=== PATIENT | male | born 1940 | race Caucasian/White ===

== ENCOUNTER 2019-10-14 18:22 | Emergency (ER) | payer OTHER, MEDICAID ==
[~2019-10-14] VITALS: Ht 152.4 cm; Wt 61.2 kg
[2019-10-14 18:35] VITALS: BP 132/65
--- NOTE | 2019-10-14 18:44 | NUR ---
PT TO ER BED 11
--- NOTE | 2019-10-14 18:44 | NUR ---
C/O CHRONIC R THIGH PAIN 01/20. PT STATES HE HAS HAD THE PAIN FOR "A LONG TIME" AND IT RADIATES UP HIS R LEG WHEN HE WALKS. DENIES INJURY, NO OBVIOUS DEFORMITY NOTED. AMBULATORY WITH STEADY GAIT. MN PROVIDED WITH GOWN TO CHANGE INTO, BED IN LOW POSITION. SIDE RAIL UP X1.
--- NOTE | 2019-10-14 19:10 | NUR ---
Dr. Sepulveda examining patient.
--- NOTE | 2019-10-14 19:10 | NUR ---
gave report to cristofer nguyen.
[2019-10-14] MEDS ORDERED: HYDROcodone/APAP 7.5/325 MG 1 TAB PO ONE (19:20)
[2019-10-14] MEDS ORDERED: ONDANSETRON 4 MG ODT PO ONE (19:20)
--- NOTE | 2019-10-14 19:36 | NUR ---
X-Ray at bedside.
--- NOTE | 2019-10-14 19:42 | NUR ---
XRAY AT BEDSIDE
--- NOTE | 2019-10-14 20:47 | NUR ---
PA JORDEN WITH PT
[2019-10-14 20:55] VITALS: BP 132/81
== END 2019-10-14 20:54 | disposition home or self-care (01) ==
LOC: MED 18:22
DX: M79.651 Pain in right thigh (principal); F17.210 Nicotine dependence, cigarettes, uncomplicated; J44.9 Chronic obstructive pulmonary disease, unspecified
CPT/HCPCS: 73552; 99283; Q0092; Q0162

== ENCOUNTER 2020-01-08 14:43 | Emergency (ER) | payer OTHER, MEDICAID ==
[2020-01-08 15:19] VITALS: BP 103/67
== END 2020-01-08 14:53 | disposition left against medical advice (07) ==
LOC: MED 14:43
DX: Z53.21 Procedure and treatment not carried out due to patient leaving prior to being seen by health care provider (principal)

== ENCOUNTER 2021-02-17 17:05 | Inpatient (IN) | payer OTHER, MEDICAID, SELFPAY ==
[~2021-02-17] VITALS: Ht 162.6 cm; Wt 46.9 kg
--- NOTE | 2021-02-17 17:10 | NUR ---
PT BROUGHT TO BED 11 VIA [facility]
[2021-02-17 17:11] VITALS: BP 133/85
--- NOTE | 2021-02-17 17:12 | NUR ---
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 HOME HEALTH NURSE FOUND PATIENT DESATING TO 70-80% PLACED ON 2L O2 VIA NC SAT >94% ON 02. PATIENT LUNG SOUNDS CRACKLES THOUGHOUT, +COUGH, -FEVER, CHILLS, N/V/D. SKIN INTACT, A&O X4, PLACED IN GOWN AND ON MONITOR. PMH: CARDIAC STENTS PLACED, HTN, COPD. ALLERGIES: SULFA
--- NOTE | 2021-02-17 17:15 | NUR ---
RAD at bedside
[2021-02-17] MEDS ORDERED: MORPHINE SULFATE 2 MG/ML SYR IVP ONE (17:20)
--- NOTE | 2021-02-17 17:20 | NUR ---
Blood sample and cultures collected, handed to CPT Charity at ER bedside
[2021-02-17] MEDS ORDERED: methylPREDNISolone SS 125 MG/2 ML VIAL IVP ONE (17:35)
[2021-02-17] MEDS ORDERED: ALBUTEROL SULFATE/IPRATROPIU 3 ML SOL IH ONE ×2 (17:35→21:34)
--- NOTE | 2021-02-17 17:50 | NUR ---
EMT at bedside for EKG
[2021-02-17 17:52] LABS: BASOPHILS % (AUTO) 0.3 % (0.0-2.0); HEMATOCRIT 38.9 % (36-52); HEMOGLOBIN 12.5 g/dL (12.0-18.0); LYMPHOCYTES # (AUTO) 0.7 K/uL (2.0-11.5); MEAN CORPUSCULAR HEMOGLOBIN 26 pg (27-31); MEAN CORPUSCULAR HGB CONC 32 g/dL (33-37); MEAN CORPUSCULAR VOLUME 80.1 fL (80-94); MONOCYTES # (AUTO) 1.2 K/uL (0.8-1.0); NEUTROPHILS # (AUTO) 14.7 K/uL (1.8-7.7); NEUTROPHILS % (AUTO) 88.7 % (42.2-75.2); PLATELET COUNT (AUTO) 637 K/uL (140-450); RED BLOOD CELL COUNT(AUTO) 4.86 MIL/uL (4.20-6.10); WHITE BLOOD COUNT (AUTO) 16.6 K/uL (4.8-10.8)
[2021-02-17 18:02] LABS: ALBUMIN 2.7 g/dL (3.4-5.0); ANION GAP 12.6 (8-16); ASPARTATE AMINOTRANSFERASE 25 U/L (15-37); CARBON DIOXIDE 30.5 mmol/L (21-32); CHLORIDE 99 mmol/L (98-107); CREATININE 1.3 mg/dL (0.6-1.3); GLUCOSE 112 mg/dL (74-106); POTASSIUM 5.1 mmol/L (3.5-5.1); SODIUM SERUM 137 mmol/L (136-145); TOTAL BILIRUBIN 0.4 mg/dL (0.0-1.0); UREA NITROGEN, BLOOD 30 mg/dL (7-18)
--- NOTE | 2021-02-17 18:31 | NUR ---
VIKI WALSH [phone]
--- NOTE | 2021-02-17 18:37 | NUR ---
GUSTABO DIAS AND NOVEL SAMPLES COLLECTED AND TAKEN TO LAB
--- NOTE | 2021-02-17 18:47 | NUR ---
DAUGHTER STEPHANIE WALSH AT BEDSIDE.
[2021-02-17] MEDS ORDERED: CEFEPIME 2,000 MG in DEXTROSE 5% 100 ML IV ONE (19:10)
[2021-02-17] MEDS ORDERED: VANCOMYCIN 1,000 MG in DEXTROSE 5% 250 ML IV ONE (19:10)
--- NOTE | 2021-02-17 19:10 | NUR ---
AARON COLLECTED, WALKED TO LAB AND HANDED TO CPT. CHITO
[2021-02-17 19:19] LABS: APPEARANCE,URINE CLEAR (CLEAR); BILIRUBIN,URINE 1+ (NEGATIVE); BLOOD, URINE NEGATIVE (NEGATIVE); COLOR,URINE YELLOW (YELLOW); LEUKOCYTE ESTERASE ,URINE NEGATIVE (NEGATIVE); NITRITE, URINE NEGATIVE (NEGATIVE); PH,URINE 5.5 (5.0-9.0); UGLUCOSE NEGATIVE (NEGATIVE)
[2021-02-17] MEDS ORDERED: FUROSEMIDE 40 MG/4 ML VIAL IVP ONE (19:20)
--- NOTE | 2021-02-17 19:21 | NUR ---
REPORT AND TRANSFER OF CARE GIVEN TO AUBREY DARNELL.
--- NOTE | 2021-02-17 19:21 | NUR ---
REPORT RECIEVED FROM AUBREY BURRIS FOR CONTINUITY OF CARE.
[2021-02-17] MEDS ORDERED: NACL 0.9% 1,000 ML IV ONE (19:25)
[2021-02-17] MEDS ORDERED: CEFEPIME 2,000 MG VIAL IV ONE (19:27)
--- NOTE | 2021-02-17 19:30 | NUR ---
RT ALEKSANDER MADE AWARE OF INH TX.
--- NOTE | 2021-02-17 20:11 | NUR ---
CONFIRMED WITH PT, SON (RICHIE) OK TO COME SEE PT. PROVIDED PROOF OF FULL VACCINATION.
--- NOTE | 2021-02-17 20:20 | NUR ---
PT SON KAYLYNN AT BEDSIDE DOES NOT HAVE LIST READILY AVAILABLE OF PTS HOME MEDICATIONS. STATED HE WILL GO HOME SHORTLY AND BRING MEDICATIONS BACK TO OBTAIN MED REC.
[2021-02-17] MEDS ORDERED: VANCOMYCIN 1,000 MG VIAL ONE (20:23)
--- NOTE | 2021-02-17 21:00 | NUR ---
PT NOTED TO HAVE VOIDED IN BED. RAYMUNDO CARE PERFORMED, NEW DIAPER APPLIED, BEDDING CHANGED, PT REPOSITIONED FOR COMFORT, WARM BLANKET GIVEN.
--- NOTE | 2021-02-17 21:35 | NUR ---
SON BACK AT BEDSIDE. OBTAINED CURRENT MED REC. WILL UPDATE PT CHART.
--- NOTE | 2021-02-17 21:38 | NUR ---
RT AT BEDSIDE.
[2021-02-17] MEDS ORDERED: GABA400C PO (21:42)
[2021-02-17] MEDS ORDERED: TADA20TA42 PO (21:42)
[2021-02-17] MEDS ORDERED: ALBU117P INH (21:42)
[2021-02-17] MEDS ORDERED: SENN-72 PO (21:42)
[2021-02-17] MEDS ORDERED: TAMS0.4C96 PO (21:42)
--- NOTE | 2021-02-17 21:56 | NUR ---
Tx (DUO) GIVEN AND PT TOLERATED WELL PER PT Tx WAS STOPPED SLIGHTLY EARLY PT WAS REPLACED ON 2LNC HE WAS PRIOR TO Tx
[2021-02-17] MEDS ORDERED: DOCUSATE SODIUM 100 MG GELCAP PO PRN (22:30)
[2021-02-17] MEDS ORDERED: POTASSIUM CHLORIDE 10 MEQ TABER PO PRN (22:30)
[2021-02-17] MEDS ORDERED: ONDANSETRON 4 MG/2 ML VIAL IM/IVP PRN (22:30)
[2021-02-17] MEDS ORDERED: HYDROcodone/APAP 7.5/325 MG 1 TAB PO PRN (22:30)
[2021-02-17] MEDS ORDERED: ACETAMINOPHEN 325 MG TAB PO PRN (22:30)
[2021-02-17] MEDS ORDERED: guaiFENesin DM 200/20 MG-10 ML 10 ML UDC PO PRN (22:30)
[2021-02-17] MEDS ORDERED: PIPERACILLIN/TAZOBACTAM 3.375 GM in DEXTROSE 5% 50 ML IV SCH (22:35)
[2021-02-17] MEDS ORDERED: ALBUTEROL SULFATE/IPRATROPIU 3 ML SOL IH PRN (22:35)
[2021-02-17 23:01] LABS: PROTHROMBIN TIME 11.5 secs (10.8-13.4)
[2021-02-17] MEDS ORDERED: PIPERACILLIN/TAZOBACTAM 2.25 GM VIAL IV ONE (23:03)
[2021-02-17 23:10] LABS: CHOL/HDL RATIO 3.9 (1-4.5); FREE T4 (FREE THYROXINE) 1.5 ng/dL (0.76-1.46); MAGNESIUM 2.4 mg/dL (1.8-2.4); PHOSPHORUS 5.3 mg/dL (2.5-4.9); THYROID STIMULATING HORMONE 1.1 uIU/mL (0.34-3.74)
[2021-02-17] MEDS: PIPER/TAZO 2.25GM/D5W PREMIX 50 ML IV SCH ×2 (23:11→23:14)
--- NOTE | 2021-02-17 23:15 | NUR ---
PT RESTING IN BED COMFORTABLY WITH EYES CLOSED. NO NOTED RESPIRATORY DISTRESS, RESPIRATIONS REMAIN EVEN AND UNLABORED. WILL CONTINUE TO MONITOR.
[2021-02-18] MEDS ORDERED: PIPERACILLIN/TAZOBACTAM 2.25 GM VIAL IV ONE ×5 (00:12→23:21)
[2021-02-18] MEDS: PIPER/TAZO 2.25GM/D5W PREMIX 50 ML IV SCH ×5 (00:15→06:18)
--- NOTE | 2021-02-18 01:19 | NUR ---
Patient appears to be resting comfortably in bed, EYES CLOSED. Vital Signs within normal limits. Respirations even and unlabored. REMAINS ON 2L O2 NASAL CANNULA, NO NOTED DISTRESS. WILL CONTINUE TO MONITOR.
--- NOTE | 2021-02-18 01:25 | NUR ---
MRSA SWAB COLLECTED AND TAKEN TO LAB BY AUBREY CHILDS.
--- NOTE | 2021-02-18 03:15 | NUR ---
RT AT BEDSIDE.
--- NOTE | 2021-02-18 03:16 | NUR ---
PT REFUSED ABG AT THIS TIME
--- NOTE | 2021-02-18 04:22 | NUR ---
Patient appears to be resting comfortably in bed, EYES CLOSED. Vital Signs within normal limits. Respirations even and unlabored. REMAINS ON 2L NASAL CANNULA WHILE SLEEPING. NO NOTED SIGNS OF DISTRESS. WILL CONTINUE TO MONITOR.
--- NOTE | 2021-02-18 05:23 | NUR ---
Patient appears to be resting comfortably in bed, EYES CLOSED, AROUSABLE TO VOICE. Vital Signs within normal limits. Respirations even and unlabored. PROVIDED ADDITIONAL BLANKET FOR COMFORT.
--- NOTE | 2021-02-18 05:46 | NUR ---
LAB AT BEDSIDE.
--- NOTE | 2021-02-18 06:13 | NUR ---
SPOKE WITH PTS DAUGHTER, VIKI. PROVIDED UPDATE ON PT STATUS.
[2021-02-18 06:29] LABS: BASOPHILS % (AUTO) 0.1 % (0.0-2.0); HEMATOCRIT 37.2 % (36-52); LYMPHOCYTES # (AUTO) 0.6 K/uL (2.0-11.5); LYMPHOCYTES % (AUTO) 3.6 % (20.5-51.1); MEAN CORPUSCULAR HEMOGLOBIN 26 pg (27-31); MEAN CORPUSCULAR HGB CONC 32 g/dL (33-37); MEAN CORPUSCULAR VOLUME 80.5 fL (80-94); MONOCYTES # (AUTO) 0.5 K/uL (0.8-1.0); MONOCYTES % (AUTO) 3.4 % (1.7-9.3); NEUTROPHILS # (AUTO) 14.6 K/uL (1.8-7.7); NEUTROPHILS % (AUTO) 92.9 % (42.2-75.2); PLATELET COUNT (AUTO) 501 K/uL (140-450); RED BLOOD CELL COUNT(AUTO) 4.62 MIL/uL (4.20-6.10); RED CELL DISTRIBUTION WIDTH 15.3 % (11.6-13.7); WHITE BLOOD COUNT (AUTO) 15.7 K/uL (4.8-10.8)
[2021-02-18] MEDS: ALBUTEROL SULFATE/IPRATROPIU 3 ML SOL IH SCH ×3 (07:00→19:10)
--- NOTE | 2021-02-18 07:02 | NUR ---
RT AT BEDSIDE.
[2021-02-18 07:04] LABS: ANION GAP 12.9 (8-16); CARBON DIOXIDE 29.5 mmol/L (21-32); CHLORIDE 101 mmol/L (98-107); CREATININE 1.3 mg/dL (0.6-1.3); GLUCOSE 133 mg/dL (74-106); POTASSIUM 4.4 mmol/L (3.5-5.1); SODIUM SERUM 139 mmol/L (136-145); UREA NITROGEN, BLOOD 36 mg/dL (7-18)
--- NOTE | 2021-02-18 07:12 | NUR ---
REPORT GIVEN TO AUBREY BURRIS/BETH RN FOR CONTINUITY OF CARE.
--- NOTE | 2021-02-18 07:13 | NUR ---
REPORT AND CONTINUATION OF CARE RECEIVED FROM AUBREY DARNELL.
[2021-02-18] MEDS ORDERED: METOPROLOL 5 MG/5 ML VIAL IVP SCH ×2 (08:00→08:14)
--- NOTE | 2021-02-18 08:30 | NUR ---
Patient resting in position of comfort HOB elevated 30*. clinical research monitor remains in place. Bed locked in lowest position, side rails x 2, call light in reach.
[2021-02-18] MEDS ORDERED: DIGOXIN 0.25 MG/ML AMP IV SCH ×3 (08:42→21:00)
--- NOTE | 2021-02-18 08:50 | NUR ---
DUONED TX NOT GIVEN DUE TO HR 160, SPO2 92%.
--- NOTE | 2021-02-18 08:52 | NUR ---
SPOKE WITH DR CASTILLO REGARDING PATIENT BP OF 95/59, ORDERS TO HOLD LOPRESSOR 5MG AND OKAY TO GIVE DIGOXIN 0.5 X1 NOW FOR HR OF 164 AND LASIX 20MG SCHEDULED.
[2021-02-18] MEDS: SENNA 8.6 MG TAB PO SCH (09:00)
[2021-02-18] MEDS ORDERED: GABAPENTIN 100 MG CAP PO SCH (09:00)
[2021-02-18] MEDS: PANTOPRAZOLE 40 MG TABEC PO SCH (09:00)
[2021-02-18] MEDS ORDERED: TADALAFIL 20 MG PO SCH (09:00)
[2021-02-18] MEDS: FUROSEMIDE 20 MG/2 ML VIAL IVP SCH ×2 (09:22→20:59)
[2021-02-18] MEDS: GABAPENTIN 300 MG CAP PO SCH ×2 (09:27→21:00)
--- NOTE | 2021-02-18 09:46 | NUR ---
MEAL AT BEDSIDE
--- NOTE | 2021-02-18 11:27 | NUR ---
SON AT BEDSIDE, PATIENT SITTING UP IN BED ALERT AND ORIENTED. RR EVEN AND UNLABORED.
--- NOTE | 2021-02-18 12:30 | NUR ---
PHYSICAL THERAPY AT BEDSIDE
[2021-02-18] MEDS: PIPERACILLIN/TAZOBACTAM 2.25 GM in DEXTROSE 5% 50 ML IV SCH ×3 (12:53→23:42)
[2021-02-18] MEDS: TADALAFIL 20 MG PO SCH (12:53)
--- NOTE | 2021-02-18 13:02 | NUR ---
DAUGHTER AT BEDSIDE.
[2021-02-18] MEDS: AMIODARONE 200 MG TAB PO SCH ×2 (13:50→17:00)
--- NOTE | 2021-02-18 14:09 | NUR ---
LAMP SHADE ASSEMBLER AT BEDSIDE.
--- NOTE | 2021-02-18 14:54 | NUR ---
1000mL bolus 0.9% NS initiated to right AC.
[2021-02-18] MEDS ORDERED: NACL 0.9% 1,000 ML IV ONE ×2 (16:10→18:30)
--- NOTE | 2021-02-18 18:04 | NUR ---
DR REESE CONTACTED REGARDING BP 93/53 HR 91, NOTIFIED IF AMIODARONE SAFE TO GIVE. DR REESE ORDER TO HOLD AMIODARONE AND GIVE BOLUS OF NS.
--- NOTE | 2021-02-18 18:30 | NUR ---
PATIENT REPOSITIONED IN BED, ON RIGHT SIDE WITH PILLOW SUPPORT. LINEN CHANGED, PROVIDED WITH WATER. DAUGHTER AT BEDSIDE.
--- NOTE | 2021-02-18 19:22 | NUR ---
REPORT AND TRANSFER OF CARE GIVEN TO AUBREY CHILDS.
--- NOTE | 2021-02-18 19:32 | NUR ---
pt is resting, eyes closed, opens eyes if stimulated. Equal rise and fall of chest wall. vss. pt is in stable condition. all needs met at this time. bed locked in lowest position, side rails x2.
[2021-02-18] MEDS: TAMSULOSIN 0.4 MG CAP PO SCH (21:00)
--- NOTE | 2021-02-18 21:00 | NUR ---
pt is awake, stated he was glad to have a room now. denies pain and discomfort. all needs met at this time.
--- NOTE | 2021-02-18 22:02 | NUR ---
report given to cristofer blair. [id number]
--- NOTE | 2021-02-18 22:18 | NUR ---
PATIENT WAS BROUGHT FROM ER VIA [employer] AAOX4. NO S/S OF DISTRESS. RESPIRATION EVEN UNLABORED. PLACED IN BED COMFORTABLY. ALL SAFETY PRECAUTIONS ARE IN PLACE. ORIENTED TO CALL LIGHT, TV, ROOM, STAFF. CALL LIGHT WITHIN REACH. WITH 2 IV LINE , LAC 24 G AND RAC 22 G. SKIN IS INTACT. BOWEL SOUNDS PRESENT IN ALL 4 QUADRANT. DENIES PAIN. MRSA SCREENING DONE. WILL CONTINUE TO MONITOR. Addendum: 02/19/21 at 0144 by Kathy Andrade RN RN PT WAS BROUGHT TO [facility] FROM ER.
--- NOTE | 2021-02-18 22:20 | NUR ---
Patient will be admitted to care of . Admited to [facility]. Will go to [id number]. Belongings list completed. Report to AUBREY VELÁZQUEZ.
--- NOTE | 2021-02-18 23:42 | NUR ---
ZOSYN GIVEN ORDERED.
[2021-02-19] MEDS: ZOLPIDEM 5 MG TAB PO PRN ×2 (01:25→21:15)
--- NOTE | 2021-02-19 01:25 | NUR ---
PATIENT ASKED FOR SLEEPING PILL, JOHANNA GIVEN PER MD ORDERED. PATIENT IS KEPT CLEAN AND DRY.
[2021-02-19] MEDS: PIPERACILLIN/TAZOBACTAM 2.25 GM in DEXTROSE 5% 50 ML IV SCH ×3 (06:00→18:53)
[2021-02-19 06:07] LABS: T4 (THYROXINE) 9.1 ug/dL (4.5-12.0)
[2021-02-19] MEDS ORDERED: PIPERACILLIN/TAZOBACTAM 2.25 GM VIAL IV ONE (06:22)
[2021-02-19 06:38] LABS: HEMATOCRIT 32.2 % (36-52); HEMOGLOBIN 10.3 g/dL (12.0-18.0); LYMPHOCYTES % (AUTO) 5.1 % (20.5-51.1); MEAN CORPUSCULAR HEMOGLOBIN 26 pg (27-31); MEAN CORPUSCULAR HGB CONC 32 g/dL (33-37); MEAN CORPUSCULAR VOLUME 81.5 fL (80-94); MONOCYTES # (AUTO) 1.4 K/uL (0.8-1.0); MONOCYTES % (AUTO) 6.8 % (1.7-9.3); NEUTROPHILS # (AUTO) 17.6 K/uL (1.8-7.7); NEUTROPHILS % (AUTO) 88.1 % (42.2-75.2); PLATELET COUNT (AUTO) 410 K/uL (140-450); RED BLOOD CELL COUNT(AUTO) 3.95 MIL/uL (4.20-6.10); RED CELL DISTRIBUTION WIDTH 15.3 % (11.6-13.7)
[2021-02-19 07:15] LABS: CARBON DIOXIDE 30.2 mmol/L (21-32); CHLORIDE 101 mmol/L (98-107); CREATININE 1.4 mg/dL (0.6-1.3); GLUCOSE 94 mg/dL (74-106); POTASSIUM 4.2 mmol/L (3.5-5.1); SODIUM SERUM 139 mmol/L (136-145); UREA NITROGEN, BLOOD 40 mg/dL (7-18)
--- NOTE | 2021-02-19 07:25 | NUR ---
RECEIVED BEDSIDE ENDORSEMENT FROM NOAH DORAN RN. PATIENT IS A&O X3, IV SITE RAC 22G AND LAC 24G, SAFETY MEASURES IN PLACE, ON 2L NC, WILL CONTINUE TO MONITOR. Addendum: 02/20/21 at 0214 by Candice Mireles RN RN wrong time-received bedside endorsement at 192
[2021-02-19 08:00] VITALS: BP 97/46
[2021-02-19] MEDS: ALBUTEROL SULFATE/IPRATROPIU 3 ML SOL IH SCH ×3 (08:03→19:32)
--- NOTE | 2021-02-19 09:28 | NUR ---
PATIENT HAS BEEN SCREENED AND CATEGORIZED MODERATE NUTRITION RISK. PATIENT WILL BE SEEN WITHIN 3-5 DAYS OF ADMISSION. 02/20/21 02/22/[address]
[2021-02-19] MEDS: GABAPENTIN 300 MG CAP PO SCH ×2 (09:56→21:05)
[2021-02-19] MEDS: SENNA 8.6 MG TAB PO SCH (09:57)
[2021-02-19] MEDS: PANTOPRAZOLE 40 MG TABEC PO SCH (09:57)
[2021-02-19] MEDS: DIGOXIN 0.25 MG TAB PO SCH (10:00)
[2021-02-19] MEDS: TADALAFIL 20 MG PO SCH (10:00)
[2021-02-19 16:00] VITALS: BP 154/90
[2021-02-19] MEDS: TAMSULOSIN 0.4 MG CAP PO SCH (21:05)
--- NOTE | 2021-02-19 21:06 | NUR ---
PATIENT RECEIVED SCHEDULED MEDS, TOLERATED WELL, NO ADVERSE REACTIONS, WILL CONTINUE TO MONITOR, SAFETY MEASURES IN PLACE, WILL NOTIFY MD NEEDED.
[2021-02-20] MEDS: PIPERACILLIN/TAZOBACTAM 2.25 GM in DEXTROSE 5% 50 ML IV SCH ×4 (00:23→18:31)
--- NOTE | 2021-02-20 00:26 | NUR ---
PATIENT RECEIVED SCHEDULED MED, PATIENT IS ASLEEP, NO SIGNS OF DISTRESS, KEPT COMFORTABLE, SAFETY MEASURES IN PLACE, WILL CONTINUE TO MONITOR.
--- NOTE | 2021-02-20 02:19 | NUR ---
PATIENT IS ASLEEP, NO SIGNS OF DISTRESS, SAFETY MEASURES IN PLACE, WILL CONTINUE TO MONITOR.
[2021-02-20 04:00] VITALS: BP 94/51
--- NOTE | 2021-02-20 05:39 | NUR ---
PATIENT DID NOT URINATE SINCE THE START OF SHIFT, DID BLADDER SCAN AND SHOWED >200ML OF URINE IN BLADDER, PT VERBALIZED THAT HE WANTED TO URINATE, URINAL PROVIDED.
[2021-02-20 06:14] LABS: EOSINOPHILS % (AUTO) 0.1 % (0.0-4.0); HEMATOCRIT 32.5 % (36-52); LYMPHOCYTES # (AUTO) 0.8 K/uL (2.0-11.5); LYMPHOCYTES % (AUTO) 6.7 % (20.5-51.1); MEAN CORPUSCULAR HEMOGLOBIN 26 pg (27-31); MEAN CORPUSCULAR HGB CONC 31 g/dL (33-37); MEAN CORPUSCULAR VOLUME 83.2 fL (80-94); MONOCYTES # (AUTO) 0.8 K/uL (0.8-1.0); NEUTROPHILS # (AUTO) 10.4 K/uL (1.8-7.7); NEUTROPHILS % (AUTO) 86.2 % (42.2-75.2); PLATELET COUNT (AUTO) 377 K/uL (140-450)
[2021-02-20 06:23] LABS: ANION GAP 10.3 (8-16); CARBON DIOXIDE 31.7 mmol/L (21-32); CHLORIDE 102 mmol/L (98-107); CREATININE 1.5 mg/dL (0.6-1.3); GLUCOSE 84 mg/dL (74-106); SODIUM SERUM 140 mmol/L (136-145); UREA NITROGEN, BLOOD 38 mg/dL (7-18)
--- NOTE | 2021-02-20 07:32 | NUR ---
CONTACTED DR. REESE ABOUT PATIENT NOT VOIDING ALL NIGHT. DR. REESE AWARE AND ORDERED TO PLACE A MCCLELLAND, MESSAGED MD BACK MADE AWARE THAT THE PATIENT HAS A HX OF BPH. AWAITING FOR MD TO REPLY FOR FURTHER INTERVENTION. ENDORSED TO AM SHIFT AUBREY CAMP.
--- NOTE | 2021-02-20 07:36 | NUR ---
PASSED ON BEDSIDE ENDORSEMENT TO AM SHIFT RN. SCHEDULED MEDS AND INTERVENTIONS COMPLETED. PATIENT IS IN STABLE CONDITION.
[2021-02-20] MEDS: ALBUTEROL SULFATE/IPRATROPIU 3 ML SOL IH SCH ×2 (07:53→14:10)
[2021-02-20 08:00] VITALS: BP 99/55
--- NOTE | 2021-02-20 08:00 | NUR ---
RECEIVED REPORT FROM ALTERNATIVE ENERGY ENGINEER FOR CONTINUITY OF CARE. PATIENT ALERT AWAKE ORIENTED X2, NOT IN DISTRESS NOTED.INITIAL ASSESSMENT INITIATED. WITH IVF ON LEFT AC DRY AND INTACT. ON 2L NC SATURATING 95% PATIENT DENIES PAIN. NEEDS ATTENDED. WILL CONTINUE TO MONITOR.
--- NOTE | 2021-02-20 09:00 | NUR ---
DUE MEDICATIONS GIVEN AND TOLERATED WELL. ON PUREED DIET.
[2021-02-20] MEDS: DIGOXIN 0.25 MG TAB PO SCH (09:20)
[2021-02-20] MEDS: PANTOPRAZOLE 40 MG TABEC PO SCH (09:20)
[2021-02-20] MEDS: GABAPENTIN 300 MG CAP PO SCH ×2 (09:20→21:22)
[2021-02-20] MEDS: TADALAFIL 20 MG PO SCH (09:21)
[2021-02-20] MEDS: SENNA 8.6 MG TAB PO SCH (09:24)
--- NOTE | 2021-02-20 11:00 | NUR ---
PT CAME AND SAW PATIENT.
--- NOTE | 2021-02-20 14:22 | NUR ---
PATIENT EATING, NO C/O PAIN.
[2021-02-20 16:00] VITALS: BP 104/50
--- NOTE | 2021-02-20 17:14 | NUR ---
DC PLANNING: CM SPOKE WITH THE PATIENT AT BEDSIDE. THE PATIENT STATES THAT HE LIVES ALONE IN A GROUND FLOOR APARTMENT. HAS BEEN UNDER HOSPICE SERVICE BUT CAN'T REMEMBER THE NAME OF THE AGENCY. HE STATES THAT HE IS AMBULATORY IN THE APARTMENT AND THAT HE DOESN'T REQUIRE HELP WITH ADL'S OR EATING. HAS AN IHSS WORKER THAT COMES 4 DAYS A WEEK FOR 5 HRS EACH DAY M-TH, [place], PHONE [phone]. ALSO STATES THAT HIS SON RICHIE IS HIS PRIMARY CONTACT AND SPOKESPERSON IF NEEDED, HIS NUMBER IS [phone]. THE PATIENT STATES THAT HIS SON DOES STAY WITH HIM AT NIGHT AND WHEN THE IHSS WORKER ISN'T THERE BUT IT WASN'T CLEAR HOW OFTEN THIS HAPPENS OR HOW LONG HIS SON STAYS. THE PATIENT HAS DME OF A FWW WITH SEAT, WC, HOSPITAL BED, O2, NEBULIZER AND A SHOWER BENCH. THE PATIENT HAS BEEN ON HOSPICE FOR A DX OF LUNG CA, AND STATES THAT HE IS NOT WILLING TO GO TO A SNF WHEN HE IS DC'D. LILY LEFT A MESSAGE FOR HIS SON RICHIE ASKING FOR CLARIFICATION REGARDING THE HOSPICE NAME AND CONTACT INFORMATION. WILL FOLLOW FOR NEEDS. Addendum: 02/23/21 at 1145 by Aleshia Macias CM DC PLANNING: VM FROM PATIENTS DAUGHTER EBONIE ASKING TO SPEAK TO ABOUT DC PLAN FOR PATIENT. LILY CALLED BACK AND LEFT VM ASKING EBONIE TO RETURN THE CALL TO DISCUSS HOSPICE OPTIONS. WILL FOLLOW FOR NEEDS. Addendum: 02/23/21 at 1250 by Aleshia Macias CM DC PLANNING: LILY SPOKE WITH THE PATIENTS SON RICHIE AT BEDSIDE. RICHIE STATES THAT HE KNOWS THAT HIS FATHER WANTS HIM TO BE THE PRIMARY CONTACT AND THAT HIS FATHER WANTS TO CHANGE HOSPICE COMPANIES. RICHIE IS IN AGREEMENT WITH REFERRING THE PATIENT TO [facility], ORDER AND INFORMATION FAXED TO THEM. RICHIE STATES THE PLAN IS FOR THE PATIENT TO RETURN HOME WITH [facility] AND HOSPICE AND THAT HE WILL CONTACT [facility] TO ASK FOR MORE HOURS. HE STATES THAT HE KNOWS THE PATIENT CANNOT BE ALONE AND THAT THE PATIENT IS PRIMARILY WC/BEDBOUND. WILL WAIT FOR [facility] TO SPEAK WITH RICHIE TO SET UP SERVICES. LILY WILL FOLLOW FOR NEEDS. Addendum: 02/24/21 at 1425 by Aleshia Macias CM DC PLANNING: LILY SPOKE WITH CHARLENE AT [facility], THE PATIENT HAS BEEN ACCEPTED TO [facility] AND WILL BE PICKED UP TODAY BY [employer] [facility] BETWEEN 3:30 AND 4:30 PM. ABOVE ENDORSED TO PATIENTS NURSE JOHNNY WHO CALL PATIENTS SON RICHIE TO CONFIRM THAT HE'S AWARE. ALSO SPOKE WITH DR. ALMONTE TO ENDORSE DC AND TO HAVE ORDER PUT IN. CM WILL FOLLOW FOR NEEDS.
--- NOTE | 2021-02-20 19:30 | NUR ---
REPORT GIVEN TO AUBREY DEVLIN FOR CONTINUITY OF CARE. PATIENT IN STABLE CONDITION.
--- NOTE | 2021-02-20 20:00 | NUR ---
PATIENT RECEIVED IN BED ALERT AND AWAKE ABLE TO SPEAK HIS NEEDS, NO S/S OF DISTRESS, DENIES PAIN.
--- NOTE | 2021-02-20 21:00 | NUR ---
DUE MEDS GIVEN BY MOUTH TOLERATED WELL.
[2021-02-20] MEDS: TAMSULOSIN 0.4 MG CAP PO SCH (21:22)
--- NOTE | 2021-02-21 | NUR ---
DUE IV ATB MED ADMINISTERED VIA PUMP, INFUSING WELL,NO S/S OF INFILTRATION IN THE INSERTION SITE. TOLERATED WELL THE WHOLE INFUSION.
--- NOTE | 2021-02-21 02:00 | NUR ---
PATIENT WAS WET CHANGED AND CLEANED THE PATIENT.
[2021-02-21 04:00] VITALS: BP 110/66
--- NOTE | 2021-02-21 04:00 | NUR ---
PATIENT WAS ASLEEP WELL, V/S WNL.
--- NOTE | 2021-02-21 06:00 | NUR ---
PATIENT WAS WET, LEFT AC PIC WAS INFILTRATED WAS REMOVED TIP OF CANULA WAS INTACT. TOLERATED WELL THE PROCEDURE.
[2021-02-21 07:06] LABS: BASOPHILS % (AUTO) 0.1 % (0.0-2.0); EOSINOPHILS % (AUTO) 0.3 % (0.0-4.0); HEMATOCRIT 33.2 % (36-52); HEMOGLOBIN 10.6 g/dL (12.0-18.0); LYMPHOCYTES # (AUTO) 0.6 K/uL (2.0-11.5); LYMPHOCYTES % (AUTO) 6.8 % (20.5-51.1); MEAN CORPUSCULAR HEMOGLOBIN 26 pg (27-31); MEAN CORPUSCULAR HGB CONC 32 g/dL (33-37); MEAN CORPUSCULAR VOLUME 81.6 fL (80-94); MONOCYTES # (AUTO) 0.8 K/uL (0.8-1.0); MONOCYTES % (AUTO) 8.5 % (1.7-9.3); NEUTROPHILS # (AUTO) 8.1 K/uL (1.8-7.7); NEUTROPHILS % (AUTO) 84.3 % (42.2-75.2); PLATELET COUNT (AUTO) 332 K/uL (140-450); RED BLOOD CELL COUNT(AUTO) 4.06 MIL/uL (4.20-6.10); RED CELL DISTRIBUTION WIDTH 15.5 % (11.6-13.7); WHITE BLOOD COUNT (AUTO) 9.6 K/uL (4.8-10.8)
--- NOTE | 2021-02-21 07:19 | NUR ---
ALL REPORTS WERE GIVEN, TRANSFER OF CARE WAS ENDORSED TO THE NEXT RN ON DUTY.
[2021-02-21 07:31] LABS: ANION GAP 11.7 (8-16); CARBON DIOXIDE 30.4 mmol/L (21-32); CHLORIDE 103 mmol/L (98-107); CREATININE 1.4 mg/dL (0.6-1.3); GLUCOSE 83 mg/dL (74-106); POTASSIUM 4.1 mmol/L (3.5-5.1); SODIUM SERUM 141 mmol/L (136-145); UREA NITROGEN, BLOOD 34 mg/dL (7-18)
[2021-02-21] MEDS: DIGOXIN 0.25 MG TAB PO SCH (09:00)
[2021-02-21] MEDS: SENNA 8.6 MG TAB PO SCH (09:56)
[2021-02-21] MEDS: GABAPENTIN 300 MG CAP PO SCH ×2 (09:56→21:41)
[2021-02-21] MEDS: PANTOPRAZOLE 40 MG TABEC PO SCH (09:56)
[2021-02-21] MEDS: TADALAFIL 20 MG PO SCH (09:57)
--- NOTE | 2021-02-21 11:32 | NUR ---
RECEIVED REPORT AND CARE FOR PATIENT FROM [facility] NURSE. PATIENT A&OX4, NO S/S OD DISTRESS OR DISCOMFORT AT THIS TIME. PATIENT DENIES ANY PAIN OR SOB. SEMI-FOLWERS IN BED WITH SIDE RAILS UP X2. PATIENT DIGOXIN LEVEL 2.58, REPORTED TO DR. ABEBE AND HE STATED TO HOLD 0900 DIGOXIN MEDICATION. SPOKE WITH DAUGHTER, VIKI, AND GAVE HER UPDATE ON FATHER'S CONDITION.
[2021-02-21 12:00] VITALS: BP 110/73
[2021-02-21] MEDS: PIPERACILLIN/TAZOBACTAM 2.25 GM in DEXTROSE 5% 50 ML IV SCH ×4 (12:00→18:19)
[2021-02-21] MEDS: POLYETHYLENE GLYCOL 17 GM/PKT PO SCH (16:03)
--- NOTE | 2021-02-21 18:46 | NUR ---
PATIENT RESTING IN BED WITH EYES CLOSED, SEMI-FOWLERS. NO S/S OF DISTRESS OR DISCOMFORT NOTED. ALL NEEDS HAVE BEEN MET AT THIS TIME.
--- NOTE | 2021-02-21 19:25 | NUR ---
RECD. RESTING IN BED, AWAKE, A/OX4. RESPIRATION EVEN AND UNLABORED. ABLE TO VERBALIZED NEEDS. IV OF NS INFUSING AT TKO, RIGHT AC G20. ON 02 AT 2 LITERS VIA N/C. SAFETY MEASURES ENFORCED. CALL LIGHT IN REACH. BED IN THE LOWEST POSITION. DENIES PAIN 0/10.
[2021-02-21] MEDS: ALBUTEROL SULFATE/IPRATROPIU 3 ML SOL IH SCH ×2 (21:15→21:16)
[2021-02-21] MEDS: DOCUSATE SODIUM 100 MG GELCAP PO SCH (21:41)
[2021-02-21] MEDS: ZOLPIDEM 5 MG TAB PO PRN (21:41)
[2021-02-21] MEDS: TAMSULOSIN 0.4 MG CAP PO SCH (21:41)
--- NOTE | 2021-02-21 21:41 | NUR ---
SCHEDULED MEDICATIONS ADMINISTERED. ENCOURAGED TO EAT HIS TRAY ON THE BEDSIDE TABLE. NO APPETITE TO EAT.
[2021-02-22] VITALS: BP 116/58
--- NOTE | 2021-02-22 | NUR ---
SLEEPING COMFORTABLY IN BED, RESPIRATION EVEN AND UNLABORED.
[2021-02-22] MEDS: PIPERACILLIN/TAZOBACTAM 2.25 GM in DEXTROSE 5% 50 ML IV SCH ×4 (02:54→17:34)
[2021-02-22 04:00] VITALS: BP 109/56
--- NOTE | 2021-02-22 04:00 | NUR ---
WARM BLANKETS PUT ON, WENT BACK TO SLEEP.
[2021-02-22 06:38] LABS: BASOPHILS % (AUTO) 0.1 % (0.0-2.0); EOSINOPHILS % (AUTO) 0.3 % (0.0-4.0); HEMATOCRIT 33.7 % (36-52); HEMOGLOBIN 10.7 g/dL (12.0-18.0); LYMPHOCYTES # (AUTO) 0.6 K/uL (2.0-11.5); MEAN CORPUSCULAR HEMOGLOBIN 26 pg (27-31); MEAN CORPUSCULAR HGB CONC 32 g/dL (33-37); MEAN CORPUSCULAR VOLUME 82.3 fL (80-94); MONOCYTES # (AUTO) 0.7 K/uL (0.8-1.0); MONOCYTES % (AUTO) 8.5 % (1.7-9.3); NEUTROPHILS # (AUTO) 7.3 K/uL (1.8-7.7); PLATELET COUNT (AUTO) 322 K/uL (140-450); RED BLOOD CELL COUNT(AUTO) 4.09 MIL/uL (4.20-6.10); RED CELL DISTRIBUTION WIDTH 15.1 % (11.6-13.7); WHITE BLOOD COUNT (AUTO) 8.7 K/uL (4.8-10.8)
--- NOTE | 2021-02-22 07:00 | NUR ---
ABLE TO SLEEP WELL. CONDITION REMAIN STABLE. ENDORSED TO AM SHIFT NURSE FOR CONTINUITY OF CARE.
[2021-02-22 07:09] LABS: ANION GAP 9.4 (8-16); CARBON DIOXIDE 30.5 mmol/L (21-32); CHLORIDE 104 mmol/L (98-107); CREATININE 1.3 mg/dL (0.6-1.3); GLUCOSE 126 mg/dL (74-106); POTASSIUM 3.9 mmol/L (3.5-5.1); SODIUM SERUM 140 mmol/L (136-145); UREA NITROGEN, BLOOD 29 mg/dL (7-18)
[2021-02-22] MEDS: ALBUTEROL SULFATE/IPRATROPIU 3 ML SOL IH SCH ×3 (07:43→20:46)
[2021-02-22 08:26] LABS: LYMPHOCYTES % (AUTO) 7.3 % (20.5-51.1); NEUTROPHILS % (AUTO) 83.8 % (42.2-75.2)
[2021-02-22] MEDS: GABAPENTIN 300 MG CAP PO SCH ×2 (09:19→21:01)
[2021-02-22] MEDS: SENNA 8.6 MG TAB PO SCH (09:19)
[2021-02-22] MEDS: POLYETHYLENE GLYCOL 17 GM/PKT PO SCH (09:19)
[2021-02-22] MEDS: PANTOPRAZOLE 40 MG TABEC PO SCH (09:19)
[2021-02-22] MEDS: DOCUSATE SODIUM 100 MG GELCAP PO SCH ×2 (09:19→21:01)
[2021-02-22] MEDS: TADALAFIL 20 MG PO SCH (09:22)
[2021-02-22] MEDS ORDERED: hydrALAZINE 10 MG TAB PO PRN (11:20)
--- NOTE | 2021-02-22 15:14 | NUR ---
02/22/21 RD INITIAL ASSESSMENT COMPLETED PLEASE REFER TO NUTRITION ASSESSMENT UNDER CARE ACTIVITY FOR ESTIMATED NUTRITIONAL NEEDS. RD RECOMMENDATIONS: 1. RECOMMEND REGULAR DIET WITH TEXTURE RECOMMENDATIONS PER MD. 2. RD TO FOLLOW-UP 7 DAYS, LOW RISK. KATIE CALVERT, RD
--- NOTE | 2021-02-22 18:44 | NUR ---
PATIENT RESTING IN BED WITH EYES CLOSED. FAMILY MEMBER AT BED SIDE/ NO S/S OF DISTRESS OR DISCOMFORT. ALL NEEDS HAVE BEEN MET AT THIS TIME.
--- NOTE | 2021-02-22 19:15 | NUR ---
RECD. REPORT FROM AUBREY COE. PATIENT RESTING IN BED, AWAKE, A/OX4. WATCHING TV. ON 02 AT 2 LITERS VIA N/C. RESPIRATION EVEN AND UNLABORED. IV OF NS INFUSING AT TKO RIGHT AC G20. USES THE URINAL. DENIES PAIN 0/10.
[2021-02-22 20:00] VITALS: BP 110/65
[2021-02-22] MEDS: ZOLPIDEM 5 MG TAB PO PRN (21:01)
[2021-02-22] MEDS: TAMSULOSIN 0.4 MG CAP PO SCH (21:01)
--- NOTE | 2021-02-22 21:01 | NUR ---
REQUESTED FOR SLEEPING PILL. MEDICATED WITH AMBIEN TOGETHER WITH THE SCHEDULED MEDICATIONS FOR THE NIGHT. TOLERATED WELL.
--- NOTE | 2021-02-22 22:35 | NUR ---
SLEEPING COMFORTABLY IN BED.
--- NOTE | 2021-02-23 01:00 | NUR ---
SLEEPING COMFORTABLY IN BED.
[2021-02-23 04:00] VITALS: BP 108/55
[2021-02-23 06:33] LABS: BASOPHILS % (AUTO) 0.1 % (0.0-2.0); EOSINOPHILS % (AUTO) 0.6 % (0.0-4.0); HEMATOCRIT 32.1 % (36-52); HEMOGLOBIN 10.3 g/dL (12.0-18.0); LYMPHOCYTES # (AUTO) 0.6 K/uL (2.0-11.5); LYMPHOCYTES % (AUTO) 8.7 % (20.5-51.1); MEAN CORPUSCULAR HEMOGLOBIN 26 pg (27-31); MEAN CORPUSCULAR HGB CONC 32 g/dL (33-37); MONOCYTES # (AUTO) 0.9 K/uL (0.8-1.0); MONOCYTES % (AUTO) 12.6 % (1.7-9.3); NEUTROPHILS # (AUTO) 5.7 K/uL (1.8-7.7); PLATELET COUNT (AUTO) 316 K/uL (140-450); RED BLOOD CELL COUNT(AUTO) 3.91 MIL/uL (4.20-6.10); RED CELL DISTRIBUTION WIDTH 15.2 % (11.6-13.7); WHITE BLOOD COUNT (AUTO) 7.4 K/uL (4.8-10.8)
[2021-02-23 06:58] LABS: ANION GAP 9.6 (8-16); CARBON DIOXIDE 30.6 mmol/L (21-32); CHLORIDE 104 mmol/L (98-107); CREATININE 1.4 mg/dL (0.6-1.3); GLUCOSE 110 mg/dL (74-106); POTASSIUM 4.2 mmol/L (3.5-5.1); SODIUM SERUM 140 mmol/L (136-145); UREA NITROGEN, BLOOD 27 mg/dL (7-18)
[2021-02-23] MEDS: ALBUTEROL SULFATE/IPRATROPIU 3 ML SOL IH SCH ×3 (07:22→20:27)
--- NOTE | 2021-02-23 07:35 | NUR ---
CONDITION REMAIN STABLE ENDORSED TO AM SHIFT NURSE FOR CONTINUITY OF CARE.
[2021-02-23] MEDS: POLYETHYLENE GLYCOL 17 GM/PKT PO SCH (09:31)
[2021-02-23] MEDS: GABAPENTIN 300 MG CAP PO SCH ×2 (09:31→21:48)
[2021-02-23] MEDS: SENNA 8.6 MG TAB PO SCH (09:31)
[2021-02-23] MEDS: DOCUSATE SODIUM 100 MG GELCAP PO SCH ×2 (09:31→21:48)
[2021-02-23] MEDS: TADALAFIL 20 MG PO SCH (09:32)
[2021-02-23] MEDS: PANTOPRAZOLE 40 MG TABEC PO SCH (09:32)
--- NOTE | 2021-02-23 12:22 | NUR ---
ATTEMPTED TO SEE PATIENT FOR PHYSICAL THERAPY TREATMENT HOWEVER PATIENT DROWSY, EYE CLOSURE, AND DOES NOT FOLLOW ANY COMMANDS. PATIENT AROUSABLE HOWEVER MAINTAINS EYE CLOSURE AND MUMBLES. UNABLE TO PARTICIPATE AT THIS TIME; RN AWARE.
[2021-02-23 17:53] VITALS: BP 130/64
--- NOTE | 2021-02-23 19:10 | NUR ---
RECEIVED REPORT FROM PATRICIA BURGOS FOR CONTINUITY OF CARE. PT SITTING UP AAOX4 WITH FAMILY AT BEDSIDE. NO APPARENT S/S OF ACUTE DISTRESS. BREATHING EVEN AND UNLABORED ON 2L NC WITH O2 SAT OF 99%. NO C/O CP, SOB OR PAIN. POC AND WHITE COMMUNICATION BOARD UPDATED. BED IN LOW/LOCKED POSITION. CALL LIGHT WITHIN REACH. PT ENCOURAGED TO CALL FOR ANY NEEDS/ASSISTANCE. WILL CONTINUE TO MONITOR.
[2021-02-23 20:00] VITALS: BP 120/62
[2021-02-23] MEDS: TAMSULOSIN 0.4 MG CAP PO SCH (21:47)
[2021-02-23] MEDS: ZOLPIDEM 5 MG TAB PO PRN (21:49)
[2021-02-24 04:00] VITALS: BP 107/71
--- NOTE | 2021-02-24 06:59 | NUR ---
REPORT GIVEN TO HEATHER BURGOS FOR CONTINUITY OF CARE. PT SITTING UP AAOX4. NO APPARENT S/S OF ACUTE DISTRESS. BREATHING EVEN AND UNLABORED. BED IN LOW/LOCKED POSITION. CALL LIGHT WITHIN REACH. ALL NEEDS MET AT THIS TIME.
[2021-02-24 08:00] VITALS: BP 98/60
--- NOTE | 2021-02-24 08:00 | NUR ---
NURSE REPORT OBTAINED REPORT FROM NIGHT NURSE GERA AT 0730 AND THIS NURSE ASSUMED CARE. VS. HR 119. AFEB. NO C/O PAIN OR DISCOMFORT. SON AT BEDSIDE. PATIENT INCONTINENT AND ЕКАТЕРИНА ARMIJO WAS TOLD OF PATIENT NEED TO BE CLEAN.
[2021-02-24] MEDS: ALBUTEROL SULFATE/IPRATROPIU 3 ML SOL IH SCH ×2 (08:07→13:00)
--- NOTE | 2021-02-24 08:07 | NUR ---
PT ON ROOM AIR. NO SOB OR DISTRESS NOTED. SPO2 99%. HHN TX GIVEN WITH NO ADVERSE REACTION. WILL CONTINUE TO MONITOR PATIENT.
[2021-02-24] MEDS: TADALAFIL 20 MG PO SCH (09:00)
--- NOTE | 2021-02-24 10:00 | NUR ---
NURSE NOTES PATIENT C/O PAIN IN MOUTH AND THROAT. MD WAS MADE AWARE- DR DELCID AT BEDSIDE.
[2021-02-24] MEDS: POLYETHYLENE GLYCOL 17 GM/PKT PO SCH (10:03)
[2021-02-24] MEDS: GABAPENTIN 300 MG CAP PO SCH (10:04)
[2021-02-24] MEDS: DOCUSATE SODIUM 100 MG GELCAP PO SCH (10:05)
[2021-02-24] MEDS: SENNA 8.6 MG TAB PO SCH (10:05)
[2021-02-24] MEDS: PANTOPRAZOLE 40 MG TABEC PO SCH (10:05)
--- NOTE | 2021-02-24 11:52 | NUR ---
RECEIVED BEDSIDE REPORT FROM DAY SHIFT NURSE, HEATHER, FOR CONTINUITY OF CARE. PT IS AWAKE WITH EYES OPEN. ON 2L O2 NC WITH BREATHING UNLABORED. PT IS ON THE TELE MONITOR. PT IS INCONTINENT WITH DRY LINENS IN PLACE. SKIN IS WARM AND DRY. IV IS IN THE RIGHT HAND 24 GAUGE. IV IS PATENT AND INTACT. PT IS STABLE AT THIS TIME.
--- NOTE | 2021-02-24 11:54 | NUR ---
RECEIVED BEDSIDE REPORT FROM DAY SHIFT NURSE HEATHER FOR CONTINUITY OF CARE. PT IS AWAKE WITH EYES OPEN. TRACH TO VENT WITH BREATHING UNLABORED. G TUBE IS IN PLACE INFUSING FEEDING ORDERED. MCCLELLAND CATH IN PLACE. SKIN IS WARM AND DRY. IV IS IN THE RIGHT HAND 18 GAUGE INFUSING POTASSIUM STARTED BY HEATHER BURGOS. PT IS STABLE AT THIS TIME. PLAN OF CARE DISCUSSED. Addendum: 02/24/21 at 1158 by Lena Pop RN THIS NOTE IS FOR THE WRONG PT.
--- NOTE | 2021-02-24 11:54 | NUR ---
NURSE REPORT REPORT GIVEN TO THE OTHER DAYSHIFT NURSE BETY ASSUMED CARE OF PATIENT. SBAR GIVEN AND ALL QUESTIONS ANSWERED. HEATHER ARMENTA RN
--- NOTE | 2021-02-24 13:12 | NUR ---
ATTEMPTED TO SEE PATIENT FOR PHYSICAL THERAPY TREATMENT HOWEVER PATIENT REFUSED STATING "I AM ON HOSPICE CARE SO I JUST WANT TO BE COMFORTABLE TODAY PLEASE. I DON'T WANT TO DO ANY EXERCISES". WILL FOLLOW UP IF APPROPRIATE TOMORROW; RN AWARE.
--- NOTE | 2021-02-24 13:33 | NUR ---
SPOKE TO ALFREDA FROM [facility]. UPDATED HER ON THE CONDITION OF THE PT. SHE STATED SHE WILL WORK ON THE DISCHARGE TO [facility] WITH HOSPICE AND SHE WILL CALL ME BACK WHEN IT IS READING. PHONE NUMBER [phone].
--- NOTE | 2021-02-24 14:00 | NUR ---
RECEIVED A CALL FROM [place], DIGITAL FIELD SERVICE TECHNICIAN, THAT THE PT WILL BE TRANSFERRED TODAY TO [facility] AT [phone]. INFORMED PT AND HE IS AWARE.
--- NOTE | 2021-02-24 14:15 | NUR ---
PT IS STABLE AT THIS TIME. NO DISTRESS NOTED ON 2L O2 NC. BREATHING IS UNLABORED. PT DENIES PAIN AT THIS TIME. WILL CONTINUE TO MONITOR.
[2021-02-24] MEDS ORDERED: GABA300C1 PO (14:18)
[2021-02-24] MEDS ORDERED: DIGO-80 PO (14:22)
[2021-02-24 14:54] VITALS: BP 124/70
--- NOTE | 2021-02-24 15:05 | NUR ---
CALLED RICHIE (SON) AND LEFT MESSAGE ON VOICEMAIL HE DID NOT ANSWER THE PHONE. LEFT HIM A MESSAGE TO CALL BACK REGARDING A PT WITH PHONE NUMBER [phone]. WILL WAIT FOR CALL BACK.
--- NOTE | 2021-02-24 15:15 | NUR ---
REPORT WAS GIVEN TO SOFÍA BURGOS, CHARGE NURSE, AT [facility]. INFORMED HIM THAT THE PT WILL BE PICKED UP BETWEEN [phone]. ALL QUESTIONS ANSWERED.
--- NOTE | 2021-02-24 15:48 | NUR ---
PT IS NOW DISCHARGED. REPORT GIVEN TO [facility]. PICKUP IS HERE NOW AND TAKING PT OFF THE UNIT. PT IS STABLE. VS ARE STABLE. NO RESPIRATORY DISTRESS NOTED ON 2L O2 NC. IV WAS REMOVED IN THE RIGHT AC. BLEEDING WAS CONTROLLED. PILLOW WAS TAKEN WITH PT IT WAS BROUGHT FROM HOME. THAT WAS THE ONLY BELONGINGS LISTED AT BEDSIDE. ID BAND REMOVED.
== END 2021-02-24 15:50 | disposition hospice, inpatient (51) | DRG 871 ==
LOC: MED 17:05 → MMU 22:20 → MTU 02-18 20:25
PROVIDERS: ADMIT Family Medicine; ATTEND Family Medicine
DX: A41.9 Sepsis, unspecified organism (principal); J18.9 Pneumonia, unspecified organism; I50.43 Acute on chronic combined systolic (congestive) and diastolic (congestive) heart failure; N17.0 Acute kidney failure with tubular necrosis; E43 Unspecified severe protein-calorie malnutrition; J96.21 Acute and chronic respiratory failure with hypoxia; J44.1 Chronic obstructive pulmonary disease with (acute) exacerbation; J44.0 Chronic obstructive pulmonary disease with (acute) lower respiratory infection; K86.1 Other chronic pancreatitis; Z68.1 Body mass index [BMI] 19.9 or less, adult; C34.91 Malignant neoplasm of unspecified part of right bronchus or lung; Z20.822 Contact with and (suspected) exposure to COVID-19; F17.200 Nicotine dependence, unspecified, uncomplicated; Z66 Do not resuscitate; I48.91 Unspecified atrial fibrillation; I25.10 Atherosclerotic heart disease of native coronary artery without angina pectoris; I11.0 Hypertensive heart disease with heart failure; E78.5 Hyperlipidemia, unspecified; K21.9 Gastro-esophageal reflux disease without esophagitis; N40.0 Benign prostatic hyperplasia without lower urinary tract symptoms; Z88.2 Allergy status to sulfonamides; Z79.899 Other long term (current) drug therapy; Z95.5 Presence of coronary angioplasty implant and graft; Z95.1 Presence of aortocoronary bypass graft
CPT/HCPCS: 36415; 71045; 80048; 80053; 80162; 81003; 82150; 83036; 83690; 83735; 83880; 84100; 84436; 84439; 84443; 84479; 84484; 85025; 85610; 85730; 87040; 87081; 93005; 94640; 96361; 96365; 96375; 97110; 97112; 97116; 97163-GP; 97530; 99285; J0692; J1160; J1644; J1940; J2270; J2543; J2930; J3370; J3490; J7030; J7060; Q0092; U0003